=== PATIENT | female | born 1950 | race Caucasian/White ===

== ENCOUNTER 2024-03-29 09:13 | Outpatient (CLI) | payer MEDICARE, BC | END 2024-03-29 09:14 | disposition home or self-care (01) | LOC: RAD 09:13 | PROVIDERS: ATTEND Internal Medicine Critical Care Medicine | DX: R06.00 Dyspnea, unspecified (principal) | CPT/HCPCS: 71046 ==

== ENCOUNTER 2024-07-03 07:56 | Outpatient (CLI) | payer MEDICARE, BC ==
[2024-07-03] MEDS ORDERED: Iopamidol 370 76% 100 ML VIAL ONE (15:00)
== END 2024-07-03 07:57 | disposition home or self-care (01) ==
LOC: CT 07:56
PROVIDERS: ATTEND Internal Medicine Cardiovascular Disease
DX: R09.89 Other specified symptoms and signs involving the circulatory and respiratory systems (principal); I65.21 Occlusion and stenosis of right carotid artery
CPT/HCPCS: 36415; 70498; 82565; Q9967

== ENCOUNTER 2024-07-20 12:08 | Outpatient (CLI) | payer MEDICARE, BC ==
[2024-07-20 13:03] LABS: #Basophils 0.06 10x3/uL (0.0-0.2); %Basophils 0.6 % (0.0-1.0); %Eosinophils 4.7 % (0.0-10.0); %Lymphocytes 32.5 % (21.0-51.0); %Monocytes 8.3 % (0.0-10.0); %Neutrophils 53.5 % (42.0-75.0); Hematocrit 37.5 % (36.0-47.0); Hemoglobin 12.8 g/dL (12.0-16.0); Mean Corpuscular HGB CONC 34.1 g/dL (32.0-36.0); Mean Corpuscular Hemoglobin 30.5 pg (27.0-31.0); Mean Corpuscular Volume 89.3 fL (78.0-98.0); Mean Platelet Volume 9.6 fL (7.4-10.4); Platelet Count 303 10x3/uL (130-400); RBC Distribution Width 13.5 % (11.5-14.5)
[2024-07-20 13:19] LABS: Anion Gap 11 mmol/L (10-20); BUN (Urea Nitrogen) 24 mg/dL (9.8-20.1); Calc. Creatinine Clearance 0 mL/min (70-130); Calcium 9.4 mg/dL (7.8-10.44); Carbon Dioxide 25 mmol/L (23-31); Chloride 105 mmol/L (98-107); Estimated GFR 36; Glucose 106 mg/dL (83-110); Potassium 3.8 mmol/L (3.5-5.1); Sodium 137 mmol/L (136-145)
== END 2024-07-20 12:09 | disposition home or self-care (01) ==
LOC: LABBT 12:08
PROVIDERS: ATTEND Thoracic Surgery (Cardiothoracic Vascular Surgery)
DX: Z01.812 Encounter for preprocedural laboratory examination (principal); I65.21 Occlusion and stenosis of right carotid artery
CPT/HCPCS: 80048; 85025

== ENCOUNTER 2024-07-20 12:30 | Inpatient (IN) | payer MEDICARE, BC ==
[2024-07-20 12:38] VITALS: BMI 32.5
[2024-07-28] MEDS ORDERED: Heparin 5,000 UNITS/ML VIAL ONE (06:30)
[2024-07-28] MEDS ORDERED: Dexamethasone 4 mg/ml Vial ONE (06:30)
[2024-07-28] MEDS ORDERED: EPINEPHrine 1 MG/ML VIAL ONE (06:30)
[2024-07-28] MEDS ORDERED: Bupivacaine PF 0.5% 30 ML VIAL ONE (06:31)
[2024-07-28] MEDS ORDERED: PROPOFOL 20 ML ONE (06:34)
[2024-07-28] MEDS ORDERED: Phenylephrine 10 MG/ML VIAL ONE (06:34)
[2024-07-28] MEDS ORDERED: Rocuronium Bromide 10 MG/ML (10ML VIAL) ONE (06:34)
[2024-07-28] MEDS ORDERED: fentaNYL PF 100 MCG/2 ML SYRINGE ONE (06:36)
[2024-07-28] MEDS ORDERED: Heparin 10,000 UNITS/ 10 ML VIAL ONE (06:39)
[2024-07-28] MEDS ORDERED: CEFAZOLIN 2 GM VIAL ONE (07:32)
[2024-07-28] MEDS ORDERED: PHENYLEPHRINE-NS 100 MCG/ML 10 ML SYRINGE ONE (07:53)
[2024-07-28] MEDS ORDERED: fentaNYL 50 mcg/mL 1 mL Vial ONE (07:59)
[2024-07-28] MEDS ORDERED: Labetalol HCl 100 MG/20 ML VIAL ONE (08:21)
[2024-07-28] MEDS ORDERED: Glycopyrrolate 0.2 MG/ML 5 ML SYRINGE ONE (08:21)
[2024-07-28] MEDS ORDERED: Protamine Sulfate 50 MG/5 ML VIAL ONE (08:31)
[2024-07-28] MEDS ORDERED: SUGAMMADEX SODIUM 200 MG/2 ML VIAL ONE (08:40)
[2024-07-28] MEDS ORDERED: Ondansetron HCl/PF 4 MG/2 ML Vial IVP PRN (09:00)
[2024-07-28] MEDS ORDERED: Ondansetron PF 4 MG/2 ML Vial IVP PRN (09:57)
[2024-07-28] MEDS ORDERED: Nitroglycerin 50 MG/250 ML BOT 250 ML IVPB PRN (09:57)
[2024-07-28] MEDS ORDERED: hydrALAZINE 20 MG/ML VIAL SLOW IVP PRN (09:57)
[2024-07-28] MEDS ORDERED: Promethazine HCl 25 MG/ML VIAL IM PRN (09:57)
[2024-07-28] MEDS ORDERED: traMADol HCl 50 MG TAB PO PRN (09:57)
[2024-07-28] MEDS ORDERED: Ipratropium/Albuterol 3 ML NEB NEB PRN (09:57)
[2024-07-28] MEDS ORDERED: Acetaminophen 325 MG TAB PO PRN (09:57)
[2024-07-28] MEDS ORDERED: fentaNYL 50 mcg/mL 1 mL Vial SLOW IVP PRN (09:57)
[2024-07-28] MEDS ORDERED: Phenylephrine 40 MG in Sodium Chloride 0.9% 250 ML 250 ML IVPB PRN (09:57)
[2024-07-28] MEDS: Sodium Chloride 0.9% 1,000 ML IV SCH (10:39)
[2024-07-28] MEDS: Ipratropium/Albuterol 3 ML NEB NEB SCH (14:08)
[2024-07-28] MEDS ORDERED: FLU (Fluad Triv) TS24-25 (65UP)/MF59C/PF 45 MCG/0.5 ML Syringe IM ONE (14:30)
[2024-07-28] MEDS: CEFAZOLIN 2 GM in Sodium Chloride 0.9% 100 ML IVPB SCH (14:33)
[2024-07-28] MEDS: Rosuvastatin 10 MG TAB PO SCH (20:54)
[2024-07-29] MEDS: Levothyroxine Sodium 100 MCG TAB PO SCH (06:05)
[2024-07-29] MEDS: Aspirin 81 mg Enteric Coated Tablet PO SCH (07:33)
[2024-07-29] MEDS: Clopidogrel Bisulfate 75 MG TAB PO SCH (07:33)
[2024-07-29] MEDS: Hydrochlorothiazide 25 MG TAB PO SCH (07:34)
[2024-07-29] MEDS: Cyanocobalamin (Vitamin B-12) 1,000 MCG TAB PO SCH (07:35)
[2024-07-29] MEDS: Amlodipine 10 MG TAB PO SCH (07:35)
[2024-07-29] MEDS: Losartan 25 MG TAB PO SCH (07:35)
[2024-07-29] MEDS: Estradiol 1 MG TAB PO SCH (07:35)
[2024-07-29 07:36] VITALS: BP 141/53
[2024-07-29 07:51] VITALS: TEMP 97.8
[2024-07-29] MEDS ORDERED: Non-Formulary Item 1 EACH (Estradiol [Estradiol] 0.5 MG Tablet) PO SCH (09:00)
[2024-07-29] MEDS ORDERED: Non-Formulary Item 1 EACH (Cyanocobalamin (Vitamin B-12) [Vitamin B12] 2,500 MCG Tab.Chew PO SCH (09:00)
[2024-07-29] MEDS ORDERED: Non-Formulary Item 1 EACH (Levothyroxine Sodium [Levothyroxine Sodium] 100 MCG Capsule) PO SCH (09:00)
== END 2024-07-29 09:20 | disposition home or self-care (01) | DRG 36 ==
LOC: SURG A 07-28 06:20 → CCU 07-28 10:46
PROVIDERS: ADMIT Thoracic Surgery (Cardiothoracic Vascular Surgery); ATTEND Thoracic Surgery (Cardiothoracic Vascular Surgery)
PROC: 037K3DZ Dilation of Right Internal Carotid Artery with Intraluminal Device, Percutaneous Approach (ICD-10-PCS; principal; 2024-07-28)
DX: I65.21 Occlusion and stenosis of right carotid artery (principal); Z79.899 Other long term (current) drug therapy; Z79.82 Long term (current) use of aspirin; Z90.710 Acquired absence of both cervix and uterus; Z79.890 Hormone replacement therapy; E11.9 Type 2 diabetes mellitus without complications; E78.00 Pure hypercholesterolemia, unspecified; I10 Essential (primary) hypertension; Z90.49 Acquired absence of other specified parts of digestive tract
CPT/HCPCS: 36416; 94640; C1725; C1769; C1876; C1884; J0171; J0665; J1100; J1642; J1644; J2371; J2704; J2720; J3010; J7030; J7620